=== PATIENT | male | born 1985 | race Two or more races ===

== ENCOUNTER 2018-12-15 12:38 | Emergency (ER) | payer MEDICAID ==
[~2018-12-15] VITALS: Ht 167.6 cm; Wt 63.5 kg
--- NOTE | 2018-12-15 12:45 | NUR ---
Called No response
--- NOTE | 2018-12-15 12:50 | NUR ---
Called No response
[2018-12-15 13:46] VITALS: BP 134/91
[2018-12-15] MEDS ORDERED: LORAZEPAM 1 MG TABLET PO ONE (14:30)
[2018-12-15] MEDS ORDERED: LORAZEPAM 1 MG TABLET ONE (14:32)
== END 2018-12-15 14:40 | disposition home or self-care (01) ==
LOC: ER 12:42
DX: F41.9 Anxiety disorder, unspecified (principal); R25.2 Cramp and spasm; F17.200 Nicotine dependence, unspecified, uncomplicated

== ENCOUNTER 2019-01-06 12:49 | Emergency (ER) | payer MEDICAID ==
[~2019-01-06] VITALS: Ht 172.7 cm; Wt 63.5 kg
[2019-01-06 12:49] VITALS: BP 116/68
[2019-01-06] MEDS ORDERED: CEPHALEXIN MONOHYDRATE 500 MG CAPSULE PO ONE ×2 (13:43→14:00)
[2019-01-06] MEDS ORDERED: SULFAMETH/TRIMETH 800/160 MG 1 UDTAB TABLET PO ONE ×2 (13:43→14:00)
[2019-01-06] MEDS ORDERED: LIDOCAINE HCL/PF 1% 30 ML SDV ONE (13:44)
[2019-01-06] MEDS ORDERED: LIDOCAINE HCL/PF 1% 30 ML VIAL TP ONE (14:00)
== END 2019-01-06 14:17 | disposition home or self-care (01) ==
LOC: ER 12:51
DX: L02.511 Cutaneous abscess of right hand (principal); F17.200 Nicotine dependence, unspecified, uncomplicated
CPT/HCPCS: 10060; 99283; J3490 ×2